=== PATIENT | female | born 1990 | race African-American/Black ===

== ENCOUNTER 2016-10-02 05:00 | Inpatient (IN) | payer OTHER ==
[2016-10-02] MEDS ORDERED: SODIUM CHLORIDE 500 ML IV ONE (06:10)
[2016-10-02 06:31] VITALS: BMI 47.6
[2016-10-02] MEDS ORDERED: SODIUM CHLORIDE 1,000 ML IV SCH ×2 (06:40→08:45)
[2016-10-02] MEDS ORDERED: BUTORPHANOL TARTRATE 1 MG/ML VIAL IVPB ONE ×2 (06:45→09:38)
[2016-10-02] MEDS ORDERED: PROMETHAZINE HCL 25 MG/1 ML VIAL IVPB ONE ×2 (06:45)
[2016-10-02 07:02] LABS: INR 0.95 (0.82-1.09); PROTHROMBIN TIME (PATIENT) 10.4 SEC (9.98-11.88)
[2016-10-02 07:05] LABS: ACTIVATED PTT 26.1 SECONDS (26.9-34.4)
[2016-10-02 07:08] LABS: ANION GAP 9 (8-16); CALCIUM 8.6 mg/dL (8.5-10.1); CO2 24 mmol/L (21-32); CREATININE 0.6 mg/dL (0.55-1.02); GLUCOSE,RANDOM 124 mg/dL (74-106)
[2016-10-02 07:38] LABS: BASOPHIL 0.3 % (0-2.0); EOSINOPHIL 0.9 % (0-4.5); MCHC 31.4 g/dl (32.0-36.0); MEAN CELL VOLUME 66.9 fl (80-96); MEAN PLT VOLUME 9.9 fl (7.5-11.1); PLATELET COUNT 204 K/MM3 (134-434); RDW 21.2 % (11.6-15.6); WHITE BLOOD COUNT 7.2 K/mm3 (4.0-10.0)
[2016-10-02] MEDS ORDERED: TUBERCULIN PPD 5 TU/0.1ML SYRINGE (IN PATIENT USE ONLY) ID ONE (09:00)
[2016-10-02 09:25] LABS: ANISOCYTOSIS 2+; MICROCYTOSIS 1+; TEAR DROP CELLS FEW
--- NOTE | 2016-10-02 09:36 | HP ---
Past Medical History - Primary Care Physician PCP:: Micheal Chirinos - Admission Chief Complaint: 26yo P0 with at EGA 39w5d admitted in spontaneous labor. History of Present Illness: Late care, started at 27wks Poor compliance, missed many visits. GDM- not monitoring FSG, poor compliance Morbid maternal obesity Dated by late US GBS neg History Source: Patient, Medical Record Limitations to Obtaining History: No Limitations - Past Medical History ORACLE CONSULTANT: No: Alzheimer's, CVA, Dementia, Migraine, Multiple Sclerosis, Peripheral Neuropathy, Parkinson's, Seizure, Syncope, TIA, Vertigo, Other Cardiovascular: No: AFIB, Aneurysm, Aortic Insufficiency, Aortic Stenosis, CAD, CHF, Deep Vein Thrombosis, HTN, Hyperlipdemia, [place], Mitral Insufficiency, Mitral Stenosis, Murmur, Pulmonary Hypertension, Other Pulmonary: No: Asthma, Bronchitis, Cancer, COPD, O2 Dependent, Pneumonia, Previously Intubated, Pulmonary Embolus, Pulmonary Fibrosis, Sleep Apnea, Other Gastrointestinal: No: Ascites, Cancer, Constipation, Crohn's Disease, Diverticulitis, Diverticulosis, Esophageal Varices, Gastritis, GERD, GI Bleed, Hemorrhoids, Hiatal Hernia, Inflamatory Bowel Disease, Irritable Bowel Disease, Pancreatitis, Peptic Ulcer Disease, Ulcerative Colitis, Other Hepatobiliary: No: Cirrhosis, Cholelithiasis, Cholecystitis, Choledocholithiasis , Hepatitis A, Hepatitis B, Hepatitis C, Other Renal/: No: Renal Failure, Renal Inusuff, BPH, Cancer, Hematuria, Hemodialysis , Neurogenic Bladder, Renal Calculi, UTI, Other Reproductive: No: Ectopic , Endometriosis, Fibroids, PID, Polycystic Ovary Syndrome, Postmenopausal, Other ...: 2 ...Para: 0 ...Term: 0 ...: 0 ...Spon : 1 ...Induced : 0 ...Multiple Gestation: 0 ...LMP: 01/02/16 ... Weeks Gestation by Dates: 39.5 ...EDC by Dates: 10/08/16 ...EDC by Sono: 10/05/16 Heme/Onc: No: Anemia, B12 Deficiency, Bleeding Disorder, Cancer, Current Chemotherapy, Current Radiation Therapy, Hemochromatosis, Hypercoaguable State, Myeloproliferative Synd, Sickle Cell Disease, Sickle Cell Trait, Thrombocytopenia, Other Infectious Disease: No: AIDS, C-Diff, Herpes Zoster, HIV, MRSA, STD's, Tuberculosis, VREF, Other Psych: No: Addictions, Anxiety, Bipolar, Depression, Panic, Psychosis, Schizophrenia, Other Musculoskeletal: No: Bursitis, Chronic low back pain, Hemiparesis, Hemiplegia, Osteoarthritis, Paraplegia, Other Rheumatology: No: Fibromyalgia, Gout, Lupus, Rheumatoid Arthritis, Sarcoidosis, Vasculitis, Other ENT: No: Allergic Rhinitis, Sinusitis, Other Endocrine: No: Pomeroy's Disease, Rosalva's Disease, Diabetes Insipidus, Diabetes Mellitus, Hyperparathyroidism, Hyperthyroidism, Hypothyroidism, Osteopenia, SIADH, Other Dermatology: No: Basal Cell, Cellulitis, Eczema, Melanoma, Psoriasis, Squamous Cell, Other - Past Surgical History Past Surgical History: Yes: None Hx Myomectomy: No Hx Transabdominal Cerclage: No - Smoking History Smoking history: Never smoked Aproximately how many cigarettes per day: 0 - Alcohol/Substance Use Hx Alcohol Use: No History of Substance Use: reports: None - Social History Usual Living Arrangement: Yes: Alone ADL: Independent History of Recent Travel: No Home Medications - Allergies Allergies/Adverse Reactions: Allergies Allergy/AdvReac Type Severity Reaction Status Date / Time No Known Allergies Allergy Verified 10/02/16 06:53 - Home Medications Home Medications: Ambulatory Orders Vitamins (Sjr) - 1 tab PO DAILY 10/02/16 Family Disease History - Family Disease History Family History: Denies Review of Systems - Review of Systems Constitutional: reports: Other (Labor, contractions) Eyes: denies: No Symptoms, Blind Spots, Blurred Vision, Double Vision, Eye Pain , Floaters, Photophobia, Recent Change in Vision, Other HENT: denies: No Symptoms, Difficult Swallowing, Ear Discharge, Ear Pain, Epistaxis, Gingival Bleeding, Hearing Loss, Mouth Swelling, Nasal Congestion, Ocular Prosthesis, Throat Pain, Toothache, Ringing in Ears, Other Neck: denies: No Symptoms, Decreased ROM, Lumps, Pain on Movement, Stiffness, Swollen Glands, Tenderness, Other Cardiovascular: denies: No Symptoms, Chest Pain, Edema, Palpitations, Shortness of Breath, Other Respiratory: denies: No Symptoms, Cough, Exercise Intolerance, Hemoptysis, Orthopnea, PND, Snoring, SOB, SOB on Exertion, Wheezing, Other Gastrointestinal: denies: No Symptoms, Abdominal Pain, Bloating, Constipation, Diarrhea, Dysphagia, Indigestion, Melena, Nausea, Rectal Bleeding, Vomiting, Vomiting Blood, Other Genitourinary: denies: No Symptoms, Burning, Discharge, Dysuria, Flank Pain, Frequency, Hematuria, Incontinence, Lesions, Menses, Pain, Testicular Mass, Testicular Pain, Testicular Swelling, Urgency, Vaginal Bleeding, Other Breasts: reports: No Symptoms Reported Musculoskeletal: reports: No Symptoms Integumentary: reports: No Symptoms Neurological: reports: No Symptoms Endocrine: reports: No Symptoms Hematology/Lymphatic: reports: No Symptoms Psychiatric: reports: No Symptoms Pain Intensity: 9 Physical Exam - Maternity Vital Signs: Vital Signs Temperature 98.2 F 10/02/16 08:00 Pulse Rate 96 H 10/02/16 08:00 Respiratory Rate 20 10/02/16 08:00 Blood Pressure 136/84 10/02/16 08:00 O2 Sat by Pulse Oximetry (%) Constitutional: Yes: Obese, Other (Morbid obesity, moderate distress with ctx's) Eyes: Yes: WNL, Conjunctiva Clear, EOM Intact HENT: Yes: Atraumatic, Normocephalic Neck: Yes: WNL, Supple, Trachea Midline Cardiovascular: Yes: WNL, Regular Rate and Rhythm Lungs: Clear to auscultation, Normal air movement Breast(s): Yes: WNL - Abdominal Exam/OB Fundal Height: 42 Number of Fetuses: Single Presentation: Vertex Contractions: Yes Regularity: Regular Intensity: Mod/Strong Monitor Mode: External Heart Rate (range): 140 Heart Rate Location: Midline Category: I Accelerations: Non-Uniform Decelerations: None (Loss of contact) - Vaginal Exam/OB Vaginal Bleediing: Yes Speculum Exam: No Dilatation (cm): 10 Effacement (%): 100 Amniotic Membrane Status: Ruptured (AROM) Amniotic Fluid: Yes: Clear Presentation: Vertex/Position Station: 0 - Physical Exam Musculoskeletal: Yes: WNL Extremities: Yes: WNL Edema: Yes Edema: LLE: Trace, RLE: Trace Integumentary: Yes: WNL Deep Tendon Reflex Grade: Normal +2 ...Motor Strength: WNL Psychiatric: Yes: WNL, Alert, Oriented - Labs Lab Results: CBC, BMP 10/02/16 06:05 10/02/16 06:05 Hemorrhage Risk Assessment - Risk Factors Medium Risk Factors: Yes: Obesity (BMI >40) High Risk Factors: Yes: None Risk Score: 1 Risk Level: Medium Risk Imaging - Results Ultrasound: Report Reviewed Assessment/Plan 26yo P0 with at EGA 39w5d admitted with spontaneous labor. The pt progressed to second stage and delivered live baby girl w/o complications.
[2016-10-02] MEDS ORDERED: BENZOCAINE 20% 57 GM BOTTLE TP PRN (09:40)
[2016-10-02] MEDS ORDERED: IBUPROFEN 600 MG TABLET (FP) PO PRN (09:40)
[2016-10-02] MEDS ORDERED: METHYLERGONOVINE MALEATE 0.2 MG/1 ML AMP IM PRN (09:40)
[2016-10-02] MEDS ORDERED: WITCH HAZEL 50% (TUCKS) 40 PAD/JAR PAD TP PRN (09:40)
[2016-10-02] MEDS ORDERED: BENZOCAINE 28 GM HEMORRHOIDAL OINTMENT TP PRN (09:40)
[2016-10-02] MEDS ORDERED: BISACODYL 10 MG SUPP.RECT RC PRN (09:40)
[2016-10-02] MEDS ORDERED: OXYTOCIN 20 UNITS in 0.9% NS 1,000 ML IV SCH (09:45)
--- NOTE | 2016-10-02 11:00 | PN ---
Delivery - Delivery Vaginal Delivery: No Problems, Spontaneous (laceration) Type of Anesthesia: Local Episiotomy/Laceration: Midline, 2nd degree EBL (cc): 300 Delivery, Single - Stages of Labor Date 1st Stage Initiatied: 10/02/16 Time 1st Stage Initiated: 04:00 Date 2nd Stage Initiated: 10/02/16 Time 2nd Stage Initiated: 08:15 Date of Delivery: 10/02/16 Time of Delivery: 08:55 Date Placenta Delivered: 10/02/16 Time Placenta Delivered: 09:00 Placenta: Yes: Spontaneous, Normal Configuration - Condition of Cashier Manager/Ski Tow Operator Present: No Gender: Female Weight: 2.892 kg Position: Right, OA Total Hours ROM (Hrs/Mins): 0/30 - 1 Minute Total Score: 8 5 Minutes Total Score: 9 - [place] Feeding Plan Initial Plan: Elected not to breastfeed exclusively throughout hospitalization Benefits of Exclusively reinforced: Yes
[2016-10-02] MEDS: PRENATAL VITAMINS W/ FOLIC ACID TABLET (FP) PO SCH (11:29)
[2016-10-02] MEDS: ACETAMINOPHEN 325 MG TABLET (FP) PO PRN ×2 (12:18→21:41)
[2016-10-02] MEDS ORDERED: NIFEdipine E.R. 30 MG TABLET (FP) PO ONE (13:45)
[2016-10-02 17:18] LABS: URINE MARIJUANA THC NEGATIVE ng/ml (CUTOFF=50)
[2016-10-03] MEDS: ACETAMINOPHEN 325 MG TABLET (FP) PO PRN ×3 (06:29→20:46)
[2016-10-03 08:53] LABS: BASOPHIL 0.2 % (0-2.0); EOSINOPHIL 0.2 % (0-4.5); MCH 21.3 pg (25.7-33.7); MCHC 31.8 g/dl (32.0-36.0); MEAN CELL VOLUME 66.9 fl (80-96); MEAN PLT VOLUME 9.3 fl (7.5-11.1); RDW 21.6 % (11.6-15.6); WHITE BLOOD COUNT 9.8 K/mm3 (4.0-10.0)
[2016-10-03 10:20] LABS: PLATELET COUNT 193 K/MM3 (134-434); PLATELET ESTIMATE ADEQUATE (NORMAL)
[2016-10-03] MEDS: PRENATAL VITAMINS W/ FOLIC ACID TABLET (FP) PO SCH (10:30)
--- NOTE | 2016-10-03 11:01 | PN ---
Post Progress Note - Subjective Subjective: No complaints Post Day: 1 Type of Delivery: Vital Signs: Vital Signs Temperature 98 F 10/03/16 09:52 Pulse Rate 82 10/03/16 09:52 Respiratory Rate 18 10/03/16 09:52 Blood Pressure 132/96 10/03/16 09:52 O2 Sat by Pulse Oximetry (%) 100 10/02/16 10:00 Breast Exam: Yes: Soft Uterus: Yes: Fundus Firm, Fundus below umbilicus, Non-tender Abdomen/GI: Yes: Abdomen soft, Passing flatus, Tolerating PO Lochia: Yes: Rubra Lochia, amount: Small Extremities: Yes: Calves non-tender, Edema Perineum: Yes: Intact, Episiotomy Activity: Ambulating - Labs Labs: CBC WBC 9.8 K/mm3 (4.0-10.0) D 10/03/16 08:00 RBC 4.97 M/mm3 (3.60-5.2) 10/03/16 08:00 Hgb 10.6 GM/dL (10.7-15.3) L 10/03/16 08:00 Hct 33.3 % (32.4-45.2) 10/03/16 08:00 MCV 66.9 fl (80-96) L 10/03/16 08:00 MCH 21.3 pg (25.7-33.7) L 10/03/16 08:00 MCHC 31.8 g/dl (32.0-36.0) L 10/03/16 08:00 RDW 21.6 % (11.6-15.6) H 10/03/16 08:00 Plt Count 193 K/MM3 (134-434) 10/03/16 08:00 MPV 9.3 fl (7.5-11.1) 10/03/16 08:00 Neutrophils % 70.0 % (42.8-82.8) D 10/03/16 08:00 Lymphocytes % 21.8 % (8-40) D 10/03/16 08:00 Monocytes % 7.8 % (3.8-10.2) 10/03/16 08:00 Eosinophils % 0.2 % (0-4.5) 10/03/16 08:00 Basophils % 0.2 % (0-2.0) 10/03/16 08:00 Platelet Estimate Adequate (NORMAL) 10/03/16 08:00 Platelet Comment No clumping noted 10/03/16 08:00 Anisocytosis 2+ 10/02/16 06:05 Microcytosis 1+ 10/02/16 06:05 Tear Drop Cells Few 10/02/16 06:05 Assessment/Plan 26yo P1 s/p , doing well stable, afebrile. BP improved. Continue Procardia XL. care instructions reviewed. Continue routine care. Ambulation encouraged Plan to d/c home if stable tomorrow Discharge instruction reviewed.
--- NOTE | 2016-10-03 11:07 | DS ---
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 Vital Signs: Vital Signs Temperature 98 F 10/03/16 09:52 Pulse Rate 82 10/03/16 09:52 Respiratory Rate 18 10/03/16 09:52 Blood Pressure 132/96 10/03/16 09:52 O2 Sat by Pulse Oximetry (%) 100 10/02/16 10:00 Constitutional: Yes: No Distress, Calm, Obese Eyes: Yes: WNL, Conjunctiva Clear HENT: Yes: WNL, Atraumatic, Normocephalic Neck: Yes: WNL, Supple, Trachea Midline Cardiovascular: Yes: WNL, Regular Rate and Rhythm Respiratory: Yes: WNL, Regular, CTA Bilaterally Gastrointestinal: Yes: WNL, Normal Bowel Sounds, Soft, Abdomen, Obese ...Rectal Exam: Yes: Deferred Renal/: Yes: WNL Pelvis: Yes: WNL ....Post : Yes: Uterus firm, Uterus non-tender, Slight lochia rubra Breast(s): Yes: WNL Musculoskeletal: Yes: WNL Extremities: Yes: WNL Edema: Yes Edema: LLE: Trace, RLE: Trace Integumentary: Yes: WNL Neurological: Yes: WNL, Alert, Oriented ...Motor Strength: WNL Psychiatric: Yes: WNL, Alert, Oriented Labs: CBC, BMP 10/03/16 08:00 10/02/16 06:05 Delivery - Delivery Vaginal Delivery: No Problems, Spontaneous Type of Anesthesia: Local Episiotomy/Laceration: Midline (laceration), 2nd degree (Laceration) EBL (cc): 300 Delivery, Single - Stages of Labor Date 1st Stage Initiatied: 10/02/16 Time 1st Stage Initiated: 04:00 Date 2nd Stage Initiated: 10/02/16 Time 2nd Stage Initiated: 08:15 Date of Delivery: 10/02/16 Time of Delivery: 08:55 Date Placenta Delivered: 10/02/16 Time Placenta Delivered: 09:00 Placenta: Yes: Spontaneous, Normal Configuration - Condition of Spa Consultant/Operational Intelligence Officer Present: No Infant Gender: Female Weight: 2.892 kg Position: Right, OA Total Hours ROM (Hrs/Mins): 0/30 - 1 Minute Total Score: 8 5 Minutes Total Score: 9 - [place] Feeding Plan Initial Plan: Elected not to breastfeed exclusively throughout hospitalization Benefits of Exclusively reinforced: Yes Discharge Summary Reason For Visit: LABOR Spontaneous labor at 39wks Procedures: Principal: Other Procedures: repair of 2nd degree perineal laceration Hospital Course: HTN Condition: Good - Instructions Diet, Activity, Other Instructions: Physical activity Resume your normal everyday activity as tolerated no heavy lifting or exercise until seen by your surgeon. You may walk unlimited sai of and climb stairs. You may resume driving the car when you feel safe and comfortable behind the wheel. No sexual activity as instructed. Wound care If you have a bandage, leave it on, and keep dry for 48-72 hours. After that time discard the outer bandage. If they are tapes on the skin under the out of bandage leave them in place. They will peel off in the next 7 to 10 days. Do Not Peel them off. You may shower the day after surgery. If there are tapes present on the skin, you may shower over them. Diet There are no dietary restrictions. Eat healthy, high-fiber foods. Drink 6 to 8 glasses of liquid each day. This will assist in keeping your bowels are regular. Pain management You may take Tylenol or acetaminophen or Ibuprofen (for example, Motrin, Advil etc.) from my pain prescription medication is ordered should be taken as prescribed for moderate to severe pain. Call MD for any of the following: Severe pain not relieved by medication Fever of 101 or higher Excessive bleeding or drainage on dressing Inability to urinate Referrals: Rodolfo Johnson MD [Staff Physician] - Disposition: HOME - Home Medications Comprehensive Discharge Medication List: Ambulatory Orders Vitamins (Sjr) - 1 tab PO DAILY 10/02/16
[2016-10-03] MEDS: NIFEdipine E.R. 30 MG TABLET (FP) PO SCH (11:43)
[2016-10-03] MEDS ORDERED: SENNOSIDES/DOCUSATE COMBO (SENNA PLUS) TABLET (UD) PO PRN (22:00)
[2016-10-04] MEDS: ACETAMINOPHEN 325 MG TABLET (FP) PO PRN ×2 (00:09→06:04)
[2016-10-04 08:31] LABS: BASOPHIL 0.8 % (0-2.0); EOSINOPHIL 3.3 % (0-4.5); MCH 21.4 pg (25.7-33.7); MCHC 32.1 g/dl (32.0-36.0); MEAN CELL VOLUME 66.6 fl (80-96); MEAN PLT VOLUME 9.3 fl (7.5-11.1); NEUTROPHILS 62.8 % (42.8-82.8); RDW 21.1 % (11.6-15.6); WHITE BLOOD COUNT 7.9 K/mm3 (4.0-10.0)
[2016-10-04 09:06] LABS: ALBUMIN 2.2 g/dl (3.4-5.0); ANION GAP 7 (8-16); BILIRUBIN,TOTAL 0.2 mg/dL (0.2-1.0); CALCIUM 8.2 mg/dL (8.5-10.1); CO2 27 mmol/L (21-32); CREATININE 0.5 mg/dL (0.55-1.02); GLUCOSE,RANDOM 81 mg/dL (74-106); SGOT/AST 31 U/L (15-37); SGPT/ALT 36 U/L (12-78); TOT PROT 6.1 g/dl (6.4-8.2)
[2016-10-04 09:07] LABS: ALK PHOS 82 U/L (45-117)
[2016-10-04] MEDS: NIFEdipine E.R. 30 MG TABLET (FP) PO SCH (09:46)
[2016-10-04] MEDS: PRENATAL VITAMINS W/ FOLIC ACID TABLET (FP) PO SCH (09:46)
[2016-10-04 10:10] LABS: PLATELET COUNT 207 K/MM3 (134-434); PLATELET ESTIMATE ADEQUATE (NORMAL)
[2016-10-04 10:33] VITALS: BP 133/81; PULSE 97; TEMP 99
--- NOTE | 2016-10-04 11:47 | PN ---
Post Progress Note - Subjective Subjective: No complaints Post Day: 2 Type of Delivery: Vital Signs: Vital Signs Temperature 99 F 10/04/16 10:00 Pulse Rate 97 H 10/04/16 10:00 Respiratory Rate 20 10/04/16 10:00 Blood Pressure 133/81 10/04/16 10:00 O2 Sat by Pulse Oximetry (%) 100 10/02/16 10:00 Breast Exam: Yes: Soft Uterus: Yes: Fundus Firm, Fundus below umbilicus, Non-tender Abdomen/GI: Yes: Abdomen soft Lochia: Yes: Rubra Lochia, amount: Small Extremities: Yes: Calves non-tender Perineum: Yes: Intact Activity: Ambulating - Labs Labs: CBC WBC 7.9 K/mm3 (4.0-10.0) 10/04/16 08:24 RBC 4.82 M/mm3 (3.60-5.2) 10/04/16 08:24 Hgb 10.3 GM/dL (10.7-15.3) L 10/04/16 08:24 Hct 32.1 % (32.4-45.2) L 10/04/16 08:24 MCV 66.6 fl (80-96) L 10/04/16 08:24 MCH 21.4 pg (25.7-33.7) L 10/04/16 08:24 MCHC 32.1 g/dl (32.0-36.0) 10/04/16 08:24 RDW 21.1 % (11.6-15.6) H 10/04/16 08:24 Plt Count 207 K/MM3 (134-434) 10/04/16 08:24 MPV 9.3 fl (7.5-11.1) 10/04/16 08:24 Neutrophils % 62.8 % (42.8-82.8) 10/04/16 08:24 Lymphocytes % 25.4 % (8-40) 10/04/16 08:24 Monocytes % 7.7 % (3.8-10.2) 10/04/16 08:24 Eosinophils % 3.3 % (0-4.5) D 10/04/16 08:24 Basophils % 0.8 % (0-2.0) D 10/04/16 08:24 Platelet Estimate Adequate (NORMAL) 10/04/16 08:24 Platelet Comment No clumping noted 10/04/16 08:24 Anisocytosis 2+ 10/02/16 06:05 Microcytosis 1+ 10/02/16 06:05 Tear Drop Cells Few 10/02/16 06:05 Assessment/Plan 26yo P1 s/p , doing well stable, afebrile. BP improved. Continue Procardia XL. care instructions reviewed. Continue routine care. Ambulation encouraged Plan to d/c home today. Follow up in-office this week. Discharge instruction reviewed.
== END 2016-10-04 16:00 | disposition home or self-care (01) | DRG 560 ==
LOC: JDEL 05:00 → JLDR 05:01 → J3W 10:26
PROVIDERS: ADMIT Obstetrics & Gynecology; ATTEND Obstetrics & Gynecology
PROC: 10E0XZZ Delivery of Products of Conception, External Approach (ICD-10-PCS; principal; 2016-10-02)
PROC: 0KQM0ZZ Repair Perineum Muscle, Open Approach (ICD-10-PCS; 2016-10-02)
PROC: 0W8NXZZ Division of Female Perineum, External Approach (ICD-10-PCS; 2016-10-02)
DX: O70.1 Second degree perineal laceration during delivery (principal); O24.429 Gestational diabetes mellitus in childbirth, unspecified control; O99.214 Obesity complicating childbirth; E66.01 Morbid (severe) obesity due to excess calories; Z68.42 Body mass index [BMI] 45.0-49.9, adult; O13.3 Gestational [pregnancy-induced] hypertension without significant proteinuria, third trimester; Z3A.39 39 weeks gestation of pregnancy; Z37.0 Single live birth
CPT/HCPCS: 36415; 59409; 80048; 80053; 80307; 85025; 85610; 85730; 86593; 86850; 86900; 86901

== ENCOUNTER 2016-12-02 09:33 | Emergency (ER) | payer OTHER ==
[2016-12-02 09:38] VITALS: BP 147/96; PULSE 82; TEMP 98.6; BMI 40.7
[2016-12-02] MEDS ORDERED: KETOROLAC TROMETHAMINE 60 MG/2 ML VIAL IM ONE (10:46)
[2016-12-02] MEDS ORDERED: KETOROLAC TROMETHAMINE 60 MG/2 ML VIAL ONE (10:53)
--- NOTE | 2016-12-02 11:09 | PDOC ---
History of Present Illness - General Chief Complaint: Back Pain Stated Complaint: BACK PAIN Time Seen by Provider: 12/02/16 10:24 - History of Present Illness Initial Comments: 12/02/16 10:50 CHIEF COMPLAINT: back pain HISTORY OF PRESENT ILLNESS: 26 yo F with no PMH presents to ED with back pain s/ p giving 2 months ago. Patient states every since she delivered she has had worsening pain to the middle of her back. Patient denies any loss of sensation to her lower extremities or any loss of bowel or bladder function. Pain is worse with movement and lying down. No recent travel or sick contacts. PAST MEDICAL HISTORY: Denies past medical history FAMILY HISTORY: Denies SOCIAL HISTORY: Denies tobacco, alcohol, illicit drug use. SURGICAL HISTORY: Denies ALLERGIES: No known drug allergies REVIEW OF SYSTEMS General/Constitutional: Denies fever or chills. Denies weakness, weight change. HEENT: Denies change in vision. Denies ear pain or discharge. Denies sore throat. Cardiovascular: Denies chest pain or shortness of breath. Respiratory: Denies cough, wheezing, or hemoptysis. Gastrointestinal: Denies nausea, vomiting, diarrhea or constipation. Denies rectal bleeding. Genitourinary: Denies dysuria, frequency, or change in urination. Musculoskeletal: Back pain x 2 months. Skin and breasts: Denies rash or easy bruising. Neurologic: Denies headache, vertigo, loss of consciousness, or loss of sensation. PHYSICAL EXAM General Appearance: Well-appearing, appropriately dressed. No apparent distress. HEENT: EOMI, PERRLA, normal ENT inspection, normal voice, TMs normal, pharynx normal. No conjunctival pallor. No photophobia, scleral icterus. Neck: Supple. Trachea midline. No tenderness, rigidity, carotid bruit, stridor , lymphadenopathy, or thyromegaly. Respiratory/Chest: Lungs CTAB. No shortness of breath, chest tenderness, respiratory distress, accessory muscle use. No crackles, rales, rhonchi, stridor , wheezing, dullness Cardiovascular: RRR. S1, S2. No JVD, murmur, bradycardia, tachycardia. Vascular Pulses: Dorsalis-Pedis (R): 2+, Dorsalis-Pedis (L): 2+ Gastrointestinal/Abdominal: Normal bowel sounds. Abdomen soft, non-distended. No tenderness or rebound tenderness. No organomegaly, pulsatile mass, guarding , hernia, hepatomegaly, splenomegaly. Lymphatic: No adenopathy, tenderness. Musculoskeletal/Extremities: Normal inspection. FROM of all extremities, normal capillary refill. Pelvis Stable. No CVA tenderness. No tenderness to extremities, pedal edema, swelling, erythema or deformity. Integumentary: Appropriate color, dry, warm. 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 Fully oriented, alert. Appropriate mood/affect. Motor strength 5/5. No appreciable EOM palsy, facial droop or sensory deficit. 12/02/16 11:09 Past History - Past Medical History Allergies/Adverse Reactions: Allergies Allergy/AdvReac Type Severity Reaction Status Date / Time No Known Allergies Allergy Verified 12/02/16 09:35 Home Medications: Ambulatory Orders Vitamins (Sjr) - 1 tab PO DAILY 10/02/16 Nifedipine ER [Procardia Xl -] 30 mg PO DAILY #30 tab.er.24 10/03/16 Methocarbamol [Robaxin -] 750 mg PO TID #21 tablet 12/02/16 Asthma: No Cancer: No Cardiac Disorders: No Diabetes: Yes (GDM) HTN: No Seizures: No Thyroid Disease: No - Immunization History Immunization Up to Date: Yes - Suicide/Smoking/Psychosocial Hx Smoking Status: No Smoking History: Never smoked Number of Cigarettes Smoked Daily: 0 Hx Alcohol Use: No Drug/Substance Use Hx: No Hx Substance Use Treatment: No *Physical Exam - Vital Signs Last Vital Signs Temp Pulse Resp BP Pulse Ox 98.6 F 82 20 147/96 100 12/02/16 09:36 12/02/16 09:36 12/02/16 09:36 12/02/16 09:36 12/02/16 09:36 ED Treatment Course - RADIOLOGY Radiology Studies Ordered: Category Date Time Status SPINE-THORACIC [RAD] Stat Radiology 12/02/16 10:46 Ordered Medical Decision Making - Medical Decision Making 12/02/16 11:09 26 yo F with no PMH presents to ED with back pain s/p giving 2 months ago. PAtient is no longer -upreg -toradol 60 mg IM -x-ray lumbar spine Advised patient to take medication as prescribed and follow up with orthopedics for further evaluation. Advised patient of signs and symptoms for return to ED. Patient verbalized understanding and agrees to plan. *DC/Admit/Observation/Transfer Diagnosis at time of Disposition: Thoracic back pain Qualifiers: Chronicity: acute Back pain laterality: midline Qualified Code(s): M54.6 - Pain in thoracic spine - Discharge Dispostion Disposition: HOME Condition at time of disposition: Stable - Prescriptions Prescriptions: Methocarbamol [Robaxin -] 750 mg PO TID #21 tablet - Referrals Referrals: Luis Beasley MD [Staff Physician] - - Patient Instructions Printed Discharge Instructions: DI for Thoracic Back Pain Additional Instructions: Take medications as prescribed. Please follow up with orthopedics within the next week for further evaluation of your back pain. As discussed, you may need an MRI and/or physical therapy to help alleviate the back pain. If you develop any chest pain, shortness of breath, palpitations, loss of sensation to your legs, loss of bowel or bladder function, or any new or worsening symptoms, please return to the ER.
== END 2016-12-02 12:48 | disposition home or self-care (01) ==
LOC: JERFT 09:33
PROC: 3E0233Z Introduction of Anti-inflammatory into Muscle, Percutaneous Approach (ICD-10-PCS; principal; 2016-12-02)
DX: M54.6 Pain in thoracic spine (principal)
CPT/HCPCS: 72070-TC; 84703; 99281-25

== ENCOUNTER 2019-02-06 09:07 | Emergency (ER) | payer OTHER ==
[2019-02-06 09:21] VITALS: TEMP 98.6; BMI 45.2
--- NOTE | 2019-02-06 09:26 | PDOC ---
Attending Attestation - Resident Resident Name: MaggyPhan - ED Attending Attestation I have performed the following: I have examined & evaluated the patient, The case was reviewed & discussed with the resident, I agree w/resident's findings & plan, Exceptions are as noted - HPI HPI: 02/06/19 09:54 Ms. Anton is a 28 yo obese F who presents ambulatory to the ER due to chest pain that began at work yesterday at noon. Patient states her symptoms began while seated at work. Pain is described as squeezing/tightness. Pain typically lasts 7 minutes before it self resolves. Pain does not radiate to the back although patient does feel some pain in her arm and in her jaw. Pain is not exacerbated by ambulation, and not relieved by rest. Patient does have a history of reflux for which she takes omeprazole, but the symptoms are not similar to her reflux She denies chest wall trauma She denies recent upper respiratory illness She denies shortness of breath, palpitations She denies recent travel As a result of her pain yesterday, patient began taking her blood pressure which was notably elevated Patient's chest pain in conjunction with her elevated blood pressure of what prompted her ER visit today No prior episodes like this Patient denies tobacco use Patient denies family history of early cardiac disease 02/06/19 10:38 - Physicial Exam PE: 02/06/19 09:25 GENERAL: The patient is in no acute distress, morbid obesity, patient appears anxious. ENT: Ears normal, nares patent, oropharynx clear without exudates. Moist mucous membranes. NECK: Normal range of motion, supple LUNGS: Breath sounds equal, clear to auscultation bilaterally. No wheezes, and no crackles. HEART: Regular rate and rhythm, normal S1 and S2 without murmur, rub or gallop. ABDOMEN: Soft, nontender, nondistended EXTREMITIES: Normal range of motion, no edema. NEUROLOGICAL: Cranial nerves II through XII grossly intact. Normal speech. No focal neurological deficits. SKIN: Warm, Dry, normal turgor, no rashes or lesions noted. 02/06/19 10:40 - Medical Decision Making 02/06/19 10:01 Differential includes cardiac ischemia, pe, asthma exacerbation, pneumonia, pneumothorax, pleural effusion, costochondritis, pericarditis, GERD. Patient is low risk [place], no respiratory complaints Will do: labs EKG CXR Tylenol Re Assess Laboratory Tests 02/06/19 09:34 WBC 6.3 Hgb 11.1 Hct 35.5 Plt Count 306 D EKG: NSR rate of 77 bpm, axis nml, intervals nml, no st elevation or depression , t waves upright 02/06/19 10:38 Laboratory Tests 02/06/19 02/06/19 09:34 09:38 BUN 9.2 Creatinine 0.7 Creatine Kinase 130 Troponin I < 0.02 Serum , Qual Negative 02/06/19 10:40 02/06/19 10:48 CXR pending CXR nml Pt states she feels better Will follow up with PMD clinical impression : chest pain, initial presentation hypertension, initial presentation obesity, initial presentation
[2019-02-06 09:51] LABS: BASO % 0.5 % (0-2.0); EOS % 0.9 % (0-4.5); HEMATOCRIT 35.5 % (32.4-45.2); HEMOGLOBIN 11.1 GM/dL (10.7-15.3); LYMPH % 35.4 % (8-40); MCH 20.9 pg (25.7-33.7); MCHC 31.2 g/dl (32.0-36.0); MEAN CELL VOLUME 66.9 fl (80-96); MEAN PLT VOLUME 9.3 fl (7.5-11.1); MONO % 5.4 % (3.8-10.2); NEUT % 57.8 % (42.8-82.8); PLATELET COUNT 306 K/MM3 (134-434); WHITE BLOOD COUNT 6.3 K/mm3 (4.0-10.0)
[2019-02-06] MEDS ORDERED: ACETAMINOPHEN 1000 MG/100 ML VIAL (NON FORMULARY) IVPB ONE (09:54)
--- NOTE | 2019-02-06 09:54 | PDOC ---
History of Present Illness - General Chief Complaint: Chest Pain Stated Complaint: CHEST PAIN Time Seen by Provider: 02/06/19 09:24 History Source: Patient Exam Limitations: No Limitations - History of Present Illness Initial Comments: 02/06/19 10:36 28 yo F with no past medical history presents to the emergency department with chest pain that has been ongoing since 12 pm yesterday. Per the patient, it was sudden in onset, located in the center chest, tightness in quality, 10/10 in severity, constant in duration, and radiates to the left arm and neck without the following concurrent symptoms: SOB, nausea, vomiting, lightheadedness, palpitations, back pain, and headaches. She denies previous history of chest pain. 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 Endorses having worsening of pain when she was walking with her grocery bags. Denies the following: recent travels, recent immobilizations, recent surgeries, and hx of DVT/PE. Does endorse using IUD hormone. Allergies: NKDA Shx: None Fhx: No cardiac familial hx Social: Denies tobacco, substance abuse (denies cocaine and meth), and alcohol. Meds: None Past History - Past Medical History Allergies/Adverse Reactions: Allergies Allergy/AdvReac Type Severity Reaction Status Date / Time No Known Allergies Allergy Verified 02/06/19 09:18 Home Medications: Ambulatory Orders Omeprazole 1 tab PO DAILY 02/06/19 Asthma: No Cancer: No Cardiac Disorders: No COPD: No Diabetes: Yes (GDM) HTN: Yes (for a short time post ) Seizures: No Thyroid Disease: No - Immunization History Immunization Up to Date: Yes - Psycho Social/Smoking Cessation Hx Smoking Status: No Smoking History: Never smoked Number of Cigarettes Smoked Daily: 0 Hx Alcohol Use: No Drug/Substance Use Hx: No Hx Substance Use Treatment: No Review of Systems - Review of Systems Able to Perform ROS?: Yes Is the patient limited Gabonese proficient: No Constitutional: No: Chills, Diaphoresis, Fever, Loss of Appetite, Weakness HEENTM: No: Eye Pain, Ear Pain, Nose Pain, Throat Pain, Mouth Pain Respiratory: No: Cough, Shortness of Breath, Hemoptysis Cardiac (ROS): Yes: Chest Pain. No: Edema, Lightheadedness, Palpitations ABD/GI: No: Constipated, Diarrhea, Nausea, Rectal Bleeding, Vomiting, Abdominal cramping, Tarry Stools : No: Burning, Dysuria, Flank Pain, Hematuria Musculoskeletal: No: Back Pain, Joint Pain, Neck Pain Integumentary: No: Erythema, Flushing, Lesions, Lumps Neurological: No: Headache, Numbness, Seizure, Tingling Psychiatric: No: Change in Appetite Endocrine: No: Unexplained Weight Loss Hematologic/Lymphatic: No: Anemia *Physical Exam - Vital Signs Last Vital Signs Temp Pulse Resp BP Pulse Ox 98.6 F 81 18 178/108 H 100 02/06/19 09:20 02/06/19 09:20 02/06/19 09:20 02/06/19 09:20 02/06/19 09:28 - Physical Exam General Appearance: Yes: Nourished, Appropriately Dressed, Obese. No: Apparent Distress, Intoxicated HEENT: positive: EOMI, TORSTEN, Normal Voice, Symmetrical, Pharynx Normal, Hearing Grossly Normal. negative: Pale Conjunctivae, Scleral Icterus (R), Scleral Icterus (L), Muffled/Hoarse voice, Pharyngeal Erythema, Tonsillar Exudate, Tonsillar Erythema, Rhinorrhea, Sinus Tenderness, Excessive drooling Neck: positive: Trachea midline, Supple. negative: Tender, Lymphadenopathy (R) , Lymphadenopathy (L), Tender lateral, Tender midline Respiratory/Chest: positive: Chest Tender (sternum), Lungs Clear, Normal Breath Sounds. negative: Respiratory Distress, Accessory Muscle Use, Rales, Rhonchi, Stridor, Wheezing, Hyperresonant Cardiovascular: positive: Regular Rhythm, Regular Rate, S1, S2. negative: Systolic Murmur Gastrointestinal/Abdominal: positive: Normal Bowel Sounds, Flat, Soft. negative : Tender, Distended, Guarding Lymphatic: negative: Adenopathy Musculoskeletal: positive: Normal Inspection. negative: CVA Tenderness, Vertebral Tenderness Extremity: positive: Normal Capillary Refill, Normal Inspection, Normal Range of Motion. negative: Tender Integumentary: positive: Normal Color, Dry, Warm. 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 Initial vitals: Initial Vital Signs Temp Pulse Resp BP Pulse Ox 98.6 F 81 18 178/108 H 99 02/06/19 09:20 02/06/19 09:20 02/06/19 09:20 02/06/19 09:20 02/06/19 09:20 Work up: ACS work up. Ddx includes PNA vs costochondritis vs pleuritis. Less likely to be PE given no tachypnea, SOB, hypoxia, and tachycardia. No DVT/PE risk factors noted. Laboratory Tests 02/06/19 02/06/19 02/06/19 09:34 09:34 09:34 WBC 6.3 RBC 5.30 H Hgb 11.1 Hct 35.5 MCV 66.9 L MCH 20.9 L MCHC 31.2 L RDW 17.0 H Plt Count 306 D MPV 9.3 Absolute Neuts (auto) 3.6 Neutrophils % 57.8 Lymphocytes % 35.4 D Monocytes % 5.4 Eosinophils % 0.9 Basophils % 0.5 Nucleated RBC % 0 Hypochromia 1+ Platelet Estimate Normal Anisocytosis 1+ Microcytosis 2+ PT with INR 12.90 INR 1.09 Sodium Potassium Chloride Carbon Dioxide Anion Gap BUN Creatinine Est GFR (CKD-EPI)AfAm Est GFR (CKD-EPI)NonAf Random Glucose Calcium Total Bilirubin AST ALT Alkaline Phosphatase Creatine Kinase Troponin I Total Protein Albumin Serum , Qual Negative 02/06/19 09:38 WBC RBC Hgb Hct MCV MCH MCHC RDW Plt Count MPV Absolute Neuts (auto) Neutrophils % Lymphocytes % Monocytes % Eosinophils % Basophils % Nucleated RBC % Hypochromia Platelet Estimate Anisocytosis Microcytosis PT with INR INR Sodium 141 Potassium 3.9 Chloride 108 H Carbon Dioxide 27 Anion Gap 6 L BUN 9.2 Creatinine 0.7 Est GFR (CKD-EPI)AfAm 138.59 Est GFR (CKD-EPI)NonAf 119.58 Random Glucose 111 H Calcium 8.8 Total Bilirubin 0.4 AST 13 L ALT 19 Alkaline Phosphatase 102 Creatine Kinase 130 Troponin I < 0.02 Total Protein 7.5 Albumin 3.2 L Serum , Qual Trop negative. EKG shows: NSR without ST elevations or depressions noted. Ventricular rate is 77 bpm, IN is 182 ms, QTc is 445 ms, and QRS is 80 ms. Normal axis Pain was treated with tylenol. Patient was reassessed who stated she has resolution of symptoms. Likely the pain is costochondritis given the nature of her work, worsening of pain with engagement of muscles, and reproducible pain on exam with a normal EKG and troponin. Will discharge patient with PMD follow up. Dispo: Discharge Discharge - Discharge Information Problems reviewed: Yes Clinical Impression/Diagnosis: Chest pain Condition: Improved Disposition: HOME - Admission No - Follow up/Referral Referrals: Dani Castro [Primary Care Provider] - - Patient Discharge Instructions Patient Printed Discharge Instructions: DI for Atypical Chest Pain Additional Instructions: You were seen in the emergency department for the evaluation of your chest pain. Your troponin, which measures heart damage, was negative, Please follow up with your primary medical doctor within 1 week after discharge for follow up care and management. Please return to the emergency department if you have worsening symptoms or new concerning symptoms. Your chest xray did not show an acute process. Thank you. - Post Discharge Activity Work/Back to School Note: Back to Work
[2019-02-06] MEDS ORDERED: ACETAMINOPHEN INJECTION 100 ML IVPB ONE (10:00)
[2019-02-06 10:11] LABS: INR 1.09 (0.83-1.09); PROTHROMBIN TIME (PATIENT) 12.9 SEC (9.7-13.0)
[2019-02-06 10:17] LABS: ALBUMIN 3.2 g/dl (3.4-5.0); ALK PHOS 102 U/L (45-117); ANION GAP 6 MMOL/L (8-16); BILIRUBIN,TOTAL 0.4 mg/dL (0.2-1); BLOOD UREA NITROGEN 9.2 mg/dL (7-18); CALCIUM 8.8 mg/dL (8.5-10.1); CHLORIDE 108 mmol/L (98-107); CO2 27 mmol/L (21-32); CREATININE 0.7 mg/dL (0.55-1.3); GLUCOSE,RANDOM 111 mg/dL (74-106); POTASSIUM 3.9 mmol/L (3.5-5.1); SGOT/AST 13 U/L (15-37); SGPT/ALT 19 U/L (13-61); SODIUM 141 mmol/L (136-145); TOT PROT 7.5 g/dl (6.4-8.2)
[2019-02-06 11:53] VITALS: BP 151/100; PULSE 81
[2019-02-06 12:41] LABS: ANISOCYTOSIS 1+; PLATELET ESTIMATE NORMAL
--- NOTE | 2019-02-07 09:58 | EKG ---
Test Reason : Blood Pressure : / mmHG Vent. Rate : 077 BPM Atrial Rate : 077 BPM P-R Int : 182 ms QRS Dur : 080 ms QT Int : 394 ms P-R-T Axes : 027 037 037 degrees QTc Int : 445 ms NORMAL SINUS RHYTHM NORMAL ECG NO PREVIOUS ECGS AVAILABLE Confirmed by SAMIR RADFORD, NIRAV ([id number]) on 02/07/2019 9:58:33 AM Referred By: Confirmed By:NIRAV DAWSON MD
== END 2019-02-06 11:55 | disposition home or self-care (01) ==
LOC: JER 09:07
PROC: 3E033NZ Introduction of Analgesics, Hypnotics, Sedatives into Peripheral Vein, Percutaneous Approach (ICD-10-PCS; principal; 2019-02-06)
DX: R07.9 Chest pain, unspecified (principal); E11.9 Type 2 diabetes mellitus without complications; I10 Essential (primary) hypertension
CPT/HCPCS: 36415; 71046-TC-FY; 80053; 82550; 84484; 84703; 85025; 85610; 93005; 93010; 96374; 99284-25; J0131

== ENCOUNTER 2019-06-08 12:24 | Emergency (ER) | payer OTHER | END 2019-06-08 12:50 | disposition home or self-care (01) | LOC: FER 12:24 | CPT/HCPCS: 99282-25 ==

== ENCOUNTER 2020-07-06 02:51 | Emergency (ER) | payer OTHER ==
[2020-07-06 03:26] VITALS: PULSE 84; TEMP 98.4; BMI 44.6
[2020-07-06] MEDS ORDERED: ACETAMINOPHEN 325 MG TABLET (FP) PO ONE (03:34)
[2020-07-06] MEDS ORDERED: METOCLOPRAMIDE HCL INJECTION 10 MG/2 ML VIAL IM ONE (03:35)
[2020-07-06] MEDS ORDERED: ACETAMINOPHEN 325 MG TABLET (FP) ONE (03:43)
[2020-07-06] MEDS ORDERED: METOCLOPRAMIDE HCL INJECTION 10 MG/2 ML VIAL ONE (03:43)
[2020-07-06] MEDS ORDERED: HYDROCHLOROTHIAZIDE 50 MG TABLET PO ONE (04:09)
[2020-07-06] MEDS ORDERED: HYDROCHLOROTHIAZIDE 25 MG TABLET (FP) ONE (04:23)
[2020-07-06 04:50] VITALS: BP 149/117
== END 2020-07-06 04:50 | disposition home or self-care (01) ==
LOC: JER 02:51
PROC: 3E023GC Introduction of Other Therapeutic Substance into Muscle, Percutaneous Approach (ICD-10-PCS; principal; 2020-07-06)
DX: G44.209 Tension-type headache, unspecified, not intractable (principal); I10 Essential (primary) hypertension
CPT/HCPCS: 93005; 93010; 99284-25

== ENCOUNTER 2021-02-24 21:40 | Emergency (ER) | payer OTHER ==
[2021-02-24 22:05] VITALS: BP 158/104; PULSE 87; TEMP 97.6; BMI 46.5
[2021-02-25] MEDS ORDERED: ONDANSETRON *ODT* 4 MG TABLET SL ONE (00:42)
[2021-02-25] MEDS ORDERED: ACETAMINOPHEN 325 MG TABLET (FP) PO ONE (00:43)
[2021-02-25] MEDS ORDERED: ACETAMINOPHEN 325 MG TABLET (FP) ONE (00:52)
[2021-02-25] MEDS ORDERED: ONDANSETRON *ODT* 4 MG TABLET ONE (00:52)
== END 2021-02-25 04:42 | disposition home or self-care (01) ==
LOC: JER 21:40
DX: R10.30 Lower abdominal pain, unspecified (principal)
CPT/HCPCS: 36415; 76817-TC; 84702; 99284-25; Q0162

== ENCOUNTER 2021-03-27 00:41 | Emergency (ER) | payer OTHER ==
[2021-03-27 01:04] VITALS: TEMP 98.3; BMI 43.8
[2021-03-27] MEDS ORDERED: PYRIDOXINE HCL (B-6) 100 MG TABLET PO ONE ×2 (01:36→01:46)
[2021-03-27] MEDS ORDERED: ONDANSETRON 4 MG/2 ML VIAL IVPUSH ONE (01:47)
[2021-03-27] MEDS ORDERED: ONDANSETRON 4 MG/2 ML VIAL ONE (01:54)
[2021-03-27] MEDS ORDERED: ACETAMINOPHEN 1000 MG/100 ML BAG IVPB ONE (01:59)
[2021-03-27] MEDS ORDERED: SODIUM CHLORIDE 0.9% 500 ML INFUS.BAG IV ONE (02:00)
[2021-03-27 03:01] LABS: CALCIUM 8.2 mg/dL (8.5-10.1)
[2021-03-27 03:02] LABS: ALBUMIN 2.7 g/dl (3.4-5.0); BLOOD UREA NITROGEN 9.6 mg/dL (7-18)
[2021-03-27 03:05] LABS: CREATININE 1.1 mg/dL (0.55-1.3)
[2021-03-27 03:06] LABS: BILIRUBIN,TOTAL 0.5 mg/dL (0.2-1)
[2021-03-27] MEDS ORDERED: ACETAMINOPHEN INJECTION 100 ML IVPB ONE (03:06)
[2021-03-27 03:08] LABS: TOT PROT 7.3 g/dl (6.4-8.2)
[2021-03-27 03:12] LABS: BASO % 0.2 % (0-2.0); EOS % 0.1 % (0-4.5); HEMATOCRIT 31.4 % (32.4-45.2); HEMOGLOBIN 10.1 GM/dL (10.7-15.3); LYMPH % 22.1 % (8-40); MCH 20.2 pg (25.7-33.7); MCHC 32.1 g/dl (32.0-36.0); MEAN CELL VOLUME 62.8 fl (80-96); MEAN PLT VOLUME 9.6 fl (7.5-11.1); MONO % 8.3 % (3.8-10.2); NEUT % 69.3 % (42.8-82.8); PLATELET COUNT 351 10^3/uL (134-434); RDW 17.6 % (11.6-15.6); WHITE BLOOD COUNT 8.3 K/mm3 (4.0-10.0)
[2021-03-27 03:24] LABS: EPI CELLS >36 /uL (0-25.1); HYALINE CASTS 1 /uL (0-3.1); PH,URINE 5.5 (5.0-8.0); URINE APPEARANCE CLOUDY; URINE BACTERIA 2735 /uL (0-1359); URINE BILIRUBIN NEGATIVE (NEGATIVE); URINE COLOR YELLOW; URINE GLUCOSE (UA) NEGATIVE (NEGATIVE); URINE KETONE TRACE (NEGATIVE); URINE LEUK ESTERASE TRACE (NEGATIVE); URINE NITRITE NEGATIVE (NEGATIVE); URINE PROTEIN 3+ (NEGATIVE); URINE RBC 623 /uL (0-23.9); URINE UROBILINOGEN 0.2 mg/dL (0.2-1.0); URINE WBC 131 /uL (0-25.8)
[2021-03-27 04:50] LABS: ANISOCYTOSIS 2+; MACROCYTOSIS 0; OVALOCYTE 1+; PLATELET ESTIMATE NORMAL; TEAR DROP CELLS 1+
[2021-03-27 05:06] LABS: BLOOD UREA NITROGEN 9.6 mg/dL (7-18); CALCIUM 8.2 mg/dL (8.5-10.1)
[2021-03-27 05:54] VITALS: BP 171/103; PULSE 81
== END 2021-03-27 05:57 | disposition home or self-care (01) ==
LOC: JER 00:41
PROC: 3E033NZ Introduction of Analgesics, Hypnotics, Sedatives into Peripheral Vein, Percutaneous Approach (ICD-10-PCS; principal; 2021-03-27)
PROC: 3E033GC Introduction of Other Therapeutic Substance into Peripheral Vein, Percutaneous Approach (ICD-10-PCS; 2021-03-27)
DX: O26.891 Other specified pregnancy related conditions, first trimester (principal); R11.2 Nausea with vomiting, unspecified; O23.41 Unspecified infection of urinary tract in pregnancy, first trimester; Z3A.08 8 weeks gestation of pregnancy
CPT/HCPCS: 36415; 80048; 80053; 81003; 84702; 85025; 87086; 99284-25; C9803; J0131; U0003; U0005

== ENCOUNTER 2021-06-06 19:21 | Observation (INO) | payer OTHER ==
[2021-06-06] MEDS ORDERED: METOCLOPRAMIDE HCL INJECTION 10 MG/2 ML VIAL IVPB ONE (21:07)
[2021-06-06] MEDS ORDERED: LACTATED RINGERS SOLUTION 1,000 ML/1,000 ML INFUS.BAG IV STA (21:07)
[2021-06-06] MEDS ORDERED: METOCLOPRAMIDE HCL INJECTION 10 MG/2 ML VIAL ONE (21:14)
[2021-06-06 21:44] LABS: BASO % 0.3 % (0-2.0); EOS % 0.2 % (0-4.5); HEMATOCRIT 30.9 % (32.4-45.2); HEMOGLOBIN 9.8 GM/dL (10.7-15.3); LYMPH % 6.4 % (8-40); MCH 20.4 pg (25.7-33.7); MCHC 31.6 g/dl (32.0-36.0); MEAN CELL VOLUME 64.5 fl (80-96); MEAN PLT VOLUME 8.8 fl (7.5-11.1); MONO % 4.9 % (3.8-10.2); NEUT % 88.2 % (42.8-82.8); PLATELET COUNT 300 10^3/uL (134-434); RDW 18.2 % (11.6-15.6); WHITE BLOOD COUNT 8.8 K/mm3 (4.0-10.0)
[2021-06-06 22:06] LABS: ALBUMIN 2.3 g/dl (3.4-5.0); BLOOD UREA NITROGEN 10.5 mg/dL (7-18)
[2021-06-06 22:10] LABS: BILIRUBIN,TOTAL 0.4 mg/dL (0.2-1); CREATININE 0.7 mg/dL (0.55-1.3)
[2021-06-06 22:25] LABS: CALCIUM 8.6 mg/dL (8.5-10.1)
[2021-06-06 22:57] LABS: ANISOCYTOSIS 2+; MACROCYTOSIS 1+; OVALOCYTE 1+
[2021-06-06 22:59] LABS: PLATELET ESTIMATE ADEQUATE
[2021-06-06 23:38] LABS: EPI CELLS >36 /uL (0-25.1); HYALINE CASTS 4 /uL (0-3.1); URINE APPEARANCE CLEAR; URINE BACTERIA 1165 /uL (0-1359); URINE BILIRUBIN NEGATIVE (NEGATIVE); URINE COLOR YELLOW; URINE GLUCOSE (UA) NEGATIVE (NEGATIVE); URINE KETONE 2+ (NEGATIVE); URINE LEUK ESTERASE NEGATIVE (NEGATIVE); URINE NITRITE NEGATIVE (NEGATIVE); URINE PROTEIN 3+ (NEGATIVE); URINE WBC 42 /uL (0-25.8)
[2021-06-07] MEDS ORDERED: CEFTRIAXONE 1 GM in DEXTROSE 5%-WATER - 100 ML IVPB ONE (00:24)
[2021-06-07] MEDS ORDERED: ACETAMINOPHEN INJECTION 100 ML IVPB ONE (00:24)
[2021-06-07] MEDS ORDERED: ACETAMINOPHEN 1000 MG/100 ML BAG IVPB ONE (00:25)
[2021-06-07] MEDS ORDERED: CEFTRIAXONE 1 GM/50 ML BAG ONE (00:25)
[2021-06-07] MEDS ORDERED: DEXTROSE 5%-NORMAL SALINE 1,000 ML IV SCH (02:30)
[2021-06-07 03:20] LABS: URINE RBC 64.6 /uL (0-23.9)
[2021-06-07] MEDS ORDERED: ACETAMINOPHEN 325 MG TABLET (FP) PO PRN (06:00)
[2021-06-07 07:06] VITALS: BP 166/82; PULSE 106; TEMP 98.2; BMI 49.6
[2021-06-07] MEDS: INSULIN SLIDING SCALE (NOVOLOG) 1 VIAL SQ SCH ×2 (07:14→10:59)
[2021-06-07 09:15] LABS: BASO % 0.1 % (0-2.0); EOS % 0.1 % (0-4.5); HEMATOCRIT 28.1 % (32.4-45.2); HEMOGLOBIN 8.9 GM/dL (10.7-15.3); LYMPH % 12.5 % (8-40); MCH 20.4 pg (25.7-33.7); MCHC 31.8 g/dl (32.0-36.0); MEAN CELL VOLUME 64.1 fl (80-96); MEAN PLT VOLUME 9.4 fl (7.5-11.1); MONO % 8.1 % (3.8-10.2); NEUT % 79.2 % (42.8-82.8); PLATELET COUNT 275 10^3/uL (134-434); RBC 4.38 M/mm3 (3.60-5.2); RDW 18.5 % (11.6-15.6); WHITE BLOOD COUNT 6.1 K/mm3 (4.0-10.0)
[2021-06-07 09:21] LABS: INR 1.15 (0.83-1.09); PROTHROMBIN TIME (PATIENT) 13.2 SEC (9.7-13.0)
[2021-06-07 09:24] LABS: ACTIVATED PTT 29.2 SECONDS (25.2-36.5)
[2021-06-07 09:30] LABS: CALCIUM 8.2 mg/dL (8.5-10.1)
[2021-06-07 09:31] LABS: BLOOD UREA NITROGEN 8.9 mg/dL (7-18); MAGNESIUM 1.5 mg/dL (1.8-2.4)
[2021-06-07 09:33] LABS: PHOSPHOROUS 4.2 mg/dL (2.5-4.9)
[2021-06-07 09:35] LABS: CREATININE 0.7 mg/dL (0.55-1.3)
[2021-06-07] MEDS ORDERED: INSULIN (NOVOLOG) ASPART 100 UNITS/ML 10ML VIAL ONE (10:58)
[2021-06-07] MEDS ORDERED: MAGNESIUM SULF 50% (8.12 MEQ/2 ML-1 GM VIAL) IVPB ONE (11:30)
[2021-06-07] MEDS ORDERED: IRON SUCROSE INJECTION 200 MG in SODIUM CHLORIDE 90 ML IVPB ONE (12:00)
[2021-06-07] MEDS ORDERED: CEFTRIAXONE 1 GM in DEXTROSE 5%-WATER - 50 ML IVPB SCH (22:00)
== END 2021-06-07 13:47 | disposition home or self-care (01) ==
LOC: JER 19:21 → JERBED 06-07 00:25 → INTOOBSV 06-07 00:25 → J8W 06-07 06:49
PROVIDERS: ADMIT Hospitalist; ATTEND Internal Medicine
PROC: 3E03329 Introduction of Other Anti-infective into Peripheral Vein, Percutaneous Approach (ICD-10-PCS; principal; 2021-06-07)
PROC: 3E0337Z Introduction of Electrolytic and Water Balance Substance into Peripheral Vein, Percutaneous Approach (ICD-10-PCS; 2021-06-07)
PROC: 3E033NZ Introduction of Analgesics, Hypnotics, Sedatives into Peripheral Vein, Percutaneous Approach (ICD-10-PCS; 2021-06-07)
PROC: 3E013VG Introduction of Insulin into Subcutaneous Tissue, Percutaneous Approach (ICD-10-PCS; 2021-06-07)
PROC: 3E033GC Introduction of Other Therapeutic Substance into Peripheral Vein, Percutaneous Approach (ICD-10-PCS; 2021-06-07)
DX: O24.414 Gestational diabetes mellitus in pregnancy, insulin controlled (principal); E83.42 Hypomagnesemia; O26.892 Other specified pregnancy related conditions, second trimester; Z3A.17 17 weeks gestation of pregnancy
CPT/HCPCS: 36415; 76705-TC; 76801-TC; 80048; 80053; 81003; 82728; 82962; 83540; 83550; 83690; 83735; 84100; 85025; 85045; 85610; 85730; 87086; 96361; 96365; 96372; 96375; 99285-25; C9803-CS; G0378; U0003; U0005

== ENCOUNTER 2021-08-31 02:44 | Emergency (ER) | payer OTHER ==
[2021-08-31 04:08] LABS: EPI CELLS 32 /uL (0-25.1); HYALINE CASTS 0 /uL (0-3.1); PH,URINE 6.5 (5.0-8.0); URINE APPEARANCE CLEAR; URINE BACTERIA 135 /uL (0-1359); URINE BILIRUBIN NEGATIVE (NEGATIVE); URINE COLOR RED; URINE GLUCOSE (UA) NEGATIVE (NEGATIVE); URINE KETONE NEGATIVE (NEGATIVE); URINE LEUK ESTERASE 1+ (NEGATIVE); URINE NITRITE NEGATIVE (NEGATIVE); URINE PROTEIN 2+ (NEGATIVE); URINE RBC 1740 /uL (0-23.9); URINE UROBILINOGEN 0.2 mg/dL (0.2-1.0); URINE WBC 94 /uL (0-25.8)
[2021-08-31 04:32] VITALS: PULSE 95; TEMP 98.4
[2021-08-31 05:24] VITALS: BP 145/61
== END 2021-08-31 05:07 | disposition home or self-care (01) ==
LOC: JER 02:44
DX: O23.43 Unspecified infection of urinary tract in pregnancy, third trimester (principal); Z3A.30 30 weeks gestation of pregnancy
CPT/HCPCS: 81003; 87077; 87086; 99283-25

== ENCOUNTER 2021-10-10 06:45 | Inpatient (IN) | payer OTHER ==
[2021-10-10] MEDS ORDERED: SODIUM CHLORIDE 1,000 ML IV ONE (20:30)
[2021-10-10] MEDS ORDERED: LABETALOL HCL 200 MG TABLET (FP) PO ONE (21:26)
[2021-10-10] MEDS ORDERED: BETAMET ACET/BETAMET NA PH 30 MG/5 ML VIAL ONE (21:45)
[2021-10-10 22:30] LABS: RETICULOCYTES 1.44 % (0.5-1.5)
[2021-10-10 22:31] LABS: BASO % 0.4 % (0-2.0); EOS % 1.5 % (0-4.5); HEMATOCRIT 26.6 % (32.4-45.2); HEMOGLOBIN 8.4 GM/dL (10.7-15.3); LYMPH % 32.5 % (8-40); MCH 20.1 pg (25.7-33.7); MCHC 31.5 g/dl (32.0-36.0); MEAN CELL VOLUME 63.8 fl (80-96); MEAN PLT VOLUME 8.7 fl (7.5-11.1); MONO % 11.7 % (3.8-10.2); NEUT % 53.9 % (42.8-82.8); PLATELET COUNT 313 10^3/uL (134-434); RBC 4.17 M/mm3 (3.60-5.2); RDW 17.4 % (11.6-15.6); WHITE BLOOD COUNT 4.9 K/mm3 (4.0-10.0)
[2021-10-10 22:36] VITALS: BMI 50.6
[2021-10-10 22:36] LABS: INR 0.94 (0.83-1.09); PROTHROMBIN TIME (PATIENT) 10.8 SEC (9.7-13.0)
[2021-10-10 22:39] LABS: ACTIVATED PTT 27.3 SECONDS (25.2-36.5)
[2021-10-10 22:47] LABS: CALCIUM 8.1 mg/dL (8.5-10.1)
[2021-10-10 22:48] LABS: BLOOD UREA NITROGEN 7.8 mg/dL (7-18)
[2021-10-10 22:49] LABS: URIC ACID 5.4 mg/dL (2.6-7.2)
[2021-10-10 22:51] LABS: CREATININE 0.9 mg/dL (0.55-1.3)
[2021-10-10 23:09] LABS: EPI CELLS 13 /uL (0-25.1); HYALINE CASTS 0 /uL (0-3.1); PH,URINE 6.5 (5.0-8.0); URINE APPEARANCE CLEAR; URINE BACTERIA 529 /uL (0-1359); URINE BILIRUBIN NEGATIVE (NEGATIVE); URINE COLOR YELLOW; URINE GLUCOSE (UA) NEGATIVE (NEGATIVE); URINE KETONE NEGATIVE (NEGATIVE); URINE LEUK ESTERASE NEGATIVE (NEGATIVE); URINE NITRITE NEGATIVE (NEGATIVE); URINE PROTEIN 2+ (NEGATIVE); URINE RBC 23 /uL (0-23.9); URINE UROBILINOGEN 0.2 mg/dL (0.2-1.0); URINE WBC 19 /uL (0-25.8)
[2021-10-10 23:26] LABS: ANISOCYTOSIS 2+; MACROCYTOSIS 0; OVALOCYTE 1+
[2021-10-10 23:43] LABS: HIV INTERPRETATION NEGATIVE (NEGATIVE)
[2021-10-11] MEDS ORDERED: BETAMET ACET/BETAMET NA PH 30 MG/5 ML VIAL IM ONE (00:18)
[2021-10-11] MEDS ORDERED: CITRIC ACID/SODIUM CITRATE 30 ML UNIT-DOSE CUP PO ONE (00:19)
[2021-10-11] MEDS ORDERED: ACETAMINOPHEN 325 MG TABLET (FP) PO PRN (01:09)
[2021-10-11] MEDS ORDERED: METHYLERGONOVINE MALEATE 0.2 MG/1 ML AMP IM PRN (01:09)
[2021-10-11] MEDS ORDERED: IBUPROFEN 600 MG TABLET (FP) PO PRN (01:09)
[2021-10-11] MEDS ORDERED: CEFAZOLIN 3 GM in DEXTROSE 5%-WATER - 100 ML IVPB ONE (02:00)
[2021-10-11] MEDS: OXYTOCIN 20 UNITS in 0.9% NS 20 UNIT/1,000 ML INFUS.BAG IV SCH ×2 (02:00→11:00)
[2021-10-11 02:14] LABS: CORD HCO3 19.4 mmHg (20-29); CORD PCO2 137.3 mmHg (30-78)
[2021-10-11 02:17] LABS: CORD BASE EXCESS -10.2 mmol/L (0-2); CORD HCO3 19.3 mmHg (20-29); CORD PCO2 61.1 mmHg (30-78); CORD pH 7.117 (7.14-7.44)
[2021-10-11 02:19] LABS: CORD pH 6.769 (7.14-7.44)
[2021-10-11] MEDS ORDERED: MISOPROSTOL 200 MCG TABLET ONE (03:56)
[2021-10-11] MEDS ORDERED: MISOPROSTOL 200 MCG TABLET NR STA (04:14)
[2021-10-11] MEDS ORDERED: OXYTOCIN 20 UNITS in 0.9% NS 20 UNIT/1,000 ML INFUS.BAG IV ONE (04:22)
[2021-10-11 05:56] LABS: BASO % 0.1 % (0-2.0); HEMATOCRIT 25.1 % (32.4-45.2); HEMOGLOBIN 7.9 GM/dL (10.7-15.3); LYMPH % 9.5 % (8-40); MCH 20.4 pg (25.7-33.7); MCHC 31.5 g/dl (32.0-36.0); MEAN CELL VOLUME 64.8 fl (80-96); MEAN PLT VOLUME 9.4 fl (7.5-11.1); MONO % 2.5 % (3.8-10.2); NEUT % 87.9 % (42.8-82.8); PLATELET COUNT 291 10^3/uL (134-434); RBC 3.87 M/mm3 (3.60-5.2); RDW 17.6 % (11.6-15.6); WHITE BLOOD COUNT 10.5 K/mm3 (4.0-10.0)
[2021-10-11] MEDS: LABETALOL HCL 200 MG TABLET (FP) PO SCH ×3 (06:15→21:14)
[2021-10-11] MEDS ORDERED: IBUPROFEN 800 MG/8 ML IJ IVPB PRN (08:03)
[2021-10-11] MEDS: guaiFENesin 200 MG/10 ML 10 ML UNIT-DOSE CUPS PO PRN ×2 (18:26→21:21)
[2021-10-11] MEDS: SIMETHICONE 80 MG TAB.CHEW (FP) PO PRN (21:14)
[2021-10-11] MEDS ORDERED: oxyCODONE HCL 5 MG TABLET PO PRN (22:10)
[2021-10-11] MEDS: oxyCODONE HCL 5 MG TABLET PO PRN (22:15)
[2021-10-12] MEDS ORDERED: BISACODYL 10 MG SUPP.RECT RC PRN (01:09)
[2021-10-12] MEDS: LABETALOL HCL 200 MG TABLET (FP) PO SCH ×2 (06:03→15:00)
[2021-10-12] MEDS: guaiFENesin 200 MG/10 ML 10 ML UNIT-DOSE CUPS PO PRN (06:03)
[2021-10-12] MEDS: SIMETHICONE 80 MG TAB.CHEW (FP) PO PRN ×2 (06:03→20:45)
[2021-10-12 09:51] LABS: BASO % 0.1 % (0-2.0); EOS % 0.1 % (0-4.5); HEMATOCRIT 24.3 % (32.4-45.2); HEMOGLOBIN 7.8 GM/dL (10.7-15.3); LYMPH % 16.1 % (8-40); MCHC 32.1 g/dl (32.0-36.0); MEAN CELL VOLUME 65.6 fl (80-96); MEAN PLT VOLUME 7.8 fl (7.5-11.1); MONO % 7.3 % (3.8-10.2); NEUT % 76.4 % (42.8-82.8); PLATELET COUNT 282 10^3/uL (134-434); RBC 3.71 M/mm3 (3.60-5.2); RDW 18.8 % (11.6-15.6); WHITE BLOOD COUNT 10.2 K/mm3 (4.0-10.0)
[2021-10-12] MEDS: oxyCODONE HCL 5 MG TABLET PO PRN (10:05)
[2021-10-12] MEDS: FERROUS SO4 325 MG TABLET (FP) PO SCH ×2 (12:40→21:31)
[2021-10-12] MEDS ORDERED: oxyCODONE HCL 5 MG TABLET PO PRN ×2 (13:09)
[2021-10-12] MEDS ORDERED: INSULIN SLIDING SCALE (NOVOLOG) 1 VIAL SQ SCH (16:30)
[2021-10-12 16:54] LABS: EPI CELLS >36 /uL (0-25.1); HYALINE CASTS 2 /uL (0-3.1); URINE APPEARANCE CLOUDY; URINE BACTERIA 18 /uL (0-1359); URINE BILIRUBIN NEGATIVE (NEGATIVE); URINE COLOR RED; URINE GLUCOSE (UA) NEGATIVE (NEGATIVE); URINE KETONE NEGATIVE (NEGATIVE); URINE LEUK ESTERASE 1+ (NEGATIVE); URINE NITRITE NEGATIVE (NEGATIVE); URINE PROTEIN 2+ (NEGATIVE); URINE RBC 13100 /uL (0-23.9); URINE WBC 31 /uL (0-25.8)
[2021-10-12] MEDS: ACETAMINOPHEN 500 MG TABLET (FP) PO PRN (20:43)
[2021-10-12] MEDS: LABETALOL HCL 100 MG TABLET (FP) PO SCH (21:32)
[2021-10-13] MEDS: SIMETHICONE 80 MG TAB.CHEW (FP) PO PRN ×2 (02:10→09:48)
[2021-10-13] MEDS: ACETAMINOPHEN 500 MG TABLET (FP) PO PRN ×2 (02:14→10:09)
[2021-10-13] MEDS: LABETALOL HCL 100 MG TABLET (FP) PO SCH ×2 (06:39→14:51)
[2021-10-13] MEDS: FERROUS SO4 325 MG TABLET (FP) PO SCH (09:48)
[2021-10-13 14:00] VITALS: BP 132/71; PULSE 94; RESP 17; TEMP 97.6
== END 2021-10-13 16:45 | disposition home or self-care (01) | DRG 540 ==
LOC: JDEL 06:45 → JLDR 21:45 → J3W 10-11 05:47
PROVIDERS: ADMIT Obstetrics & Gynecology; ATTEND Obstetrics & Gynecology
PROC: 10D00Z1 Extraction of Products of Conception, Low, Open Approach (ICD-10-PCS; principal; 2021-10-11)
PROC: 30233N1 Transfusion of Nonautologous Red Blood Cells into Peripheral Vein, Percutaneous Approach (ICD-10-PCS; 2021-10-11)
DX: O36.8330 Maternal care for abnormalities of the fetal heart rate or rhythm, third trimester, not applicable or unspecified (principal); O60.14X0 Preterm labor third trimester with preterm delivery third trimester, not applicable or unspecified; O98.52 Other viral diseases complicating childbirth; O24.429 Gestational diabetes mellitus in childbirth, unspecified control; U07.1 COVID-19; O10.92 Unspecified pre-existing hypertension complicating childbirth; O99.214 Obesity complicating childbirth; O99.02 Anemia complicating childbirth; D62 Acute posthemorrhagic anemia; Z3A.36 36 weeks gestation of pregnancy; Z37.0 Single live birth
CPT/HCPCS: 36415; 36430; 36600; 76819-TC; 80048; 81003; 82570; 82803; 82962; 82977; 83010; 84156; 84450; 84460; 84550; 85025; 85032; 85045; 85610; 85730; 86780; 86850; 86900; 86901; 86922; 87389; 88307-TC; 96372; C9803-CS; P9058; U0003; U0005

== ENCOUNTER 2021-11-30 06:11 | Emergency (ER) | payer OTHER ==
[2021-11-30 06:19] VITALS: BP 131/83; PULSE 87; RESP 18; TEMP 98.1; BMI 48.0
== END 2021-11-30 08:36 | disposition home or self-care (01) ==
LOC: JER 06:11
DX: L02.214 Cutaneous abscess of groin (principal)
CPT/HCPCS: 99281-25